=== PATIENT | female | born 1950 | race Hispanic/Latino ===

== ENCOUNTER 2018-03-16 13:35 | Observation (INO) | payer OTHER, SELFPAY ==
--- NOTE | 2018-03-16 14:05 | RAD REPORT ---
EXAM DESCRIPTION: CT - Ct Stroke Brain Wo Cont - 03/16/2018 1:52 pm CLINICAL HISTORY: TIA COMPARISON: none TECHNIQUE: Computed axial tomography of the head was obtained. IV contrast was not requested. All CT scans are performed using dose optimization technique as appropriate and may include automated exposure control or mA/KV adjustment according to patient size. FINDINGS: An intracranial bleed is not seen . The ventricles are normal in caliber. No extra-axial fluid collection is noted. A 4 millimeter low-density areas present within the right t halamus. A 5 millimeter low-density areas present within the left caudate having the appearance of an old lacu eloise infarction. Mild low-density areas within periventricular and deep white matter have the appearance of ischemic c hanges secondary to small vessel disease Fluid within the sinuses/ mastoids is not seen. IMPRESSION: 4 millimeter low-density area within the right thalamus consistent with a lacunar infarc tion. The age is indeterminate but it has more of the appearance of being old than acute. 5 millimeter old lacunar infarct involving the left caudate If the patient continues have symptoms to suggest an acute infarct then MRI would be recommended The exam was discussed with Dr. Stubbs in the Emergency Room at approximately 1:40 p.m. March 16, 2018
[2018-03-16 14:07] LABS: Absolute Lymphocytes (CBC) 2.3 K/uL (0.7-4.9); Absolute Monocytes 0.4 K/uL (0.1-1.3); Absolute Neutrophil 4.8 K/uL (1.8-8.0); Basophils % 0.6 % (0-1.3); Eosinophils % 0.6 % (0-4.4); Hematocrit 38.2 % (36.0-45.0); Lymphocytes % 30.9 % (15.3-44.8); MCH 30.4 pg (27.0-35.0); MCV 92.6 fL (80-100); MPV 9.3 fL (7.6-11.3); Monocytes % 4.7 % (3.3-12.3); RBC Red Blood Cell Count 4.12 M/uL (3.86-4.86)
[2018-03-16 14:08] LABS: Protime INR 1.11
[2018-03-16 14:11] LABS: Potassium 3.8 mEq/L (3.6-5.0)
--- NOTE | 2018-03-16 14:11 | RAD REPORT ---
EXAM DESCRIPTION: Olya Single View03/16/2018 1:56 pm CLINICAL HISTORY: Chest pain COMPARISON: none FINDINGS: The lungs appear clear of acute infiltrate. The heart is mildly enlarged IMPRESSION: No acute abnormalities displayed
[2018-03-16] MEDS ORDERED: ENALAPRILAT 1.25 MG/ML VIAL IV ONE (14:13)
--- NOTE | 2018-03-16 15:11 | ER ---
Nurse's Notes [facility] Name: Elizabeth Howard Age: 67 yrs Sex: Female : 1950 Arrival Date: 03/16/2018 Time: 13:34 Bed 4 Private MD: Diagnosis: Syncope and collapse;Personal history of transient ischemic attack (TIA), and cerebral infarction without residual deficits;Transient cerebral ischemic attack, unspecified Presentation: 03/16 12:50 Acuity: JOCELYN 2 13:28 Presenting complaint: EMS states: Pt had no neuro deficits before the colonoscopy sv procedure and had 2 syncopal episodes after ambulating to the bathroom. Pt had left arm and leg weakness with tremors to all 4 extremities with some improvement on the way to ER. EMS stated no arm drift. BS-99 at GI center and BS-126 by EMS. 22G L AC. Propofol was given during the colonoscopy. An acute neurological deficit is present. The charge nurse has been notified. The patients blood glucose was checked before arriving to the hospital and was found to be normal. 13:30 Presenting complaint: EMS states: pt had a colonoscopy procedure, pt was ambulatory to the restroom, staff reports that the pt had a syncopal episode, last known well was 1250. Transition of care: patient was not received from another setting of care. 13:30 Method Of Arrival: EMS: [facility] 13:30 Onset of symptoms was March 16, 2018 at 12:50. Initial Sepsis Screen: Does the patient sg meet any 2 criteria? No. Patient's initial sepsis screen is negative. Does the patient have a suspected source of infection? No. Patient's initial sepsis screen is negative. Care prior to arrival: Medication(s) given: D50 NS administered in route from GI center post colonoscopy, 250 mL administered IV initiated. 22 GA, in the left antecubital area, Glucose check: 99 Oxygen administered. via nasal cannula. 13:30 An acute neurological deficit is present. The charge nurse has been notified. The sg patient has been moved to a treatment area. The patients blood glucose was checked before arriving to the hospital and was found to be normal. Triage Assessment: 13:28 The onset of the patients symptoms was less than three hours ago. General: Appears in sv no apparent distress. comfortable, slender, Behavior is calm, cooperative, appropriate for age. Pain: Denies pain. EENT: No signs and/or symptoms were reported regarding the EENT system. Neuro: Level of Consciousness is awake, alert, obeys commands, Oriented to person, place, time, situation, Moves all extremities. Speech is normal, Facial symmetry appears normal. Cardiovascular: Patient's skin is warm and dry. Respiratory: Respiratory effort is even, unlabored, Respiratory pattern is regular, symmetrical. Derm: Skin is pink, warm \T\ dry. Stroke Activation: Symptom onset < 3 hours Physician: Stroke Attending; Name: ; Notified At: 13:19; Arrived At: Physician: Chief Stroke Resident; Name: ; Notified At: 13:19; Arrived At: Physician: Stroke Resident; Name: ; Notified At: 13:19; Arrived At: Physician: ED Attending; Name: Dr Stubbs; Notified At: 13:19; Arrived At: 13:36 Physician: ED Resident; Name: ; Notified At: 13:19; Arrived At: Stroke Activation: Symptom onset < 3 hours Physician: Stroke Attending; Name: ; Notified At: ; Arrived At: Physician: Chief Stroke Resident; Name: ; Notified At: ; Arrived At: Physician: Stroke Resident; Name: ; Notified At: ; Arrived At: Physician: ED Attending; Name: ; Notified At: 13:19; Arrived At: 13:20 Physician: ED Resident; Name: ; Notified At: ; Arrived At: Historical: - Allergies: 17:04 No Known Allergies; sv - Home Meds: 14:01 Plavix Oral [Active]; sv 14:15 valsartan 320 mg oral tab 1 tab once daily [Active]; zolpidem 10 mg Oral tab 1 tab once sg daily [Active]; Potassium Chloride Oral [Active]; metformin 500 mg Oral tab 1 tab 2 times per day [Active]; Bystolic 10 mg oral tab 1 tab once daily [Active]; atorvastatin 10 mg oral tab 1 tab once daily [Active]; - PMHx: 14:01 TIA x3; Hypertension; Diabetes - NIDDM; sv - Immunization history:: Adult Immunizations up to date. - Social history:: Smoking status: Patient/guardian denies using tobacco. Screenin:23 Abuse screen: Denies threats or abuse. Denies injuries from another. Nutritional sv screening: No deficits noted. Tuberculosis screening: No symptoms or risk factors identified. Fall Risk No fall in past 12 months (0 pts). Secondary diagnosis (15 points) TIA, IV access (20 points). Ambulatory Aid- None/Bed Rest/Nurse Assist (0 pts). Gait- Normal/Bed Rest/Wheelchair (0 pts) Mental Status- Oriented to own ability (0 pts). Total Davis Fall Scale indicates No Risk (0-24 pts). Assessment: 13:19 Reassessment: Code stroke activated, pt transported from Ambulance to [place] with ER staff melo Blanca RN and Lucina MANNING, accompanied by [facility] and [facility]. 13:30 Reassessment: at bedside evaluating pt at this time. sg 13:45 Patient has been NPO before screening. The patient is alert, and able to follow sv commands. The patient does not exhibit slurred or garbled speech. The patient is not exhibiting difficulty speaking. The patient does not exhibit difficulty understanding words. The patient is able to swallow own secretions with no drooling or need for suction. Patient tolerated one teaspoon of water. No drooling, immediate coughing, gurgling, or clearing of the throat was noted. The patient tolerated 90mL of water. No drooling, immediate coughing, gurgling, or clearing of the throat was noted. The patient passed the bedside swallow screening. Oral medications may be given as ordered. Contact Physician for further diet orders. Provider notified of bedside swallow screening results: Damon Stubbs MD. 14:00 T-PA (Activase) Screening: Contraindications: Rapidly improving condition or minor sv deficit: Yes. 14:00 Reassessment: Patient appears in no apparent distress at this time. Patient and/or sv family updated on plan of care and expected duration. Pain level reassessed. Patient is alert, oriented x 3, equal unlabored respirations, skin warm/dry/pink. Patient states symptoms have improved. 15:40 Reassessment: Patient appears in no apparent distress at this time. Patient and/or sv family updated on plan of care and expected duration. Pain level reassessed. Patient is alert, oriented x 3, equal unlabored respirations, skin warm/dry/pink. Patient states symptoms have improved. 17:03 Reassessment: Patient appears in no apparent distress at this time. Patient and/or sv family updated on plan of care and expected duration. Pain level reassessed. Patient is alert, oriented x 3, equal unlabored respirations, skin warm/dry/pink. Patient states symptoms have improved. Vital Signs: 13:30 BP 166 / 80; Pulse 63 MON; Resp 20 S; Pulse Ox 96% on R/A; Weight 56.25 kg (R); Pain sg 0/10; 13:40 Temp 97.6(O); sg 13:55 BP 153 / 72 RA Sitting (auto/reg); Pulse 49; Resp 18; Pulse Ox 96% ; sv 14:00 BP 161 / 61 LA Sitting (auto/reg); Pulse 49; Resp 18; Pulse Ox 96% ; sv 14:57 BP 154 / 66; Pulse 45; Resp 16; Pulse Ox 99% ; sv Antonette Coma Score: 13:30 Eye Response: spontaneous(4). Verbal Response: oriented(5). Motor Response: obeys sg commands(6). Total: 15. NIH Stroke Scale Scores: 13:36 NIHSS Score: 2 sv 13:48 NIHSS Score: 2 gs ED Course: 13:[address] via EMS stretcher. sv 13:34 Patient arrived in ED. sv 13:35 Damon Stubbs MD is Attending Physician. gs 13:35 potline monitor on. Pulse ox on. NIBP on. sv 13:36 Patient moved back from CT. sg 13:39 Triage completed. sg 13:40 Arm band placed on. sg 13:45 Initial lab(s) drawn, by ED staff, sent to lab. Inserted saline lock: 20 gauge in right sg antecubital area, using aseptic technique. Blood collected. Inserted by [employer]ILRO[employer] BUS MOTOR MECHANICKERRI Verdugo Maintain EMS IV. Dressing intact. Good blood return noted. Site clean \T\ dry. Gauge \T\ site: 22 G LAC. IV is patent, is intact, with good blood return. 13:47 X-ray(s) taken. sv 13:51 Lucina Woodson RN is Primary Nurse. sv 13:52 CT Stroke Brain w/o Contrast In Process Unspecified. EDMS 13:56 Stroke CXR 1 View In Process Unspecified. EDMS 14:08 Patient has correct armband on for positive identification. Placed in gown. Bed in low sv position. Call light in reach. Side rails up X2. 14:08 EKG done, by counter intelligence technician. reviewed by Damon Stubbs MD. tc 15:10 Alexus Jane MD is Hospitalizing Provider. gs 17:02 No provider procedures requiring assistance completed. Patient admitted, IV remains in sv place. intact. Administered Medications: 14:15 Drug: Enalaprilat 1.25 mg Route: IV; Rate: calculated rate; Site: left antecubital; sv 14:20 Follow up: Response: No adverse reaction; IV Status: Completed infusion; IV Intake: 1ml sv Point of Care Testing: Blood Glucose: 13:41 Blood Glucose: 175 mg/dL; sg Ranges: Intake: 14:20 IV: 1ml; Total: 1ml. sv Outcome: 15:10 Decision to Hospitalize by Provider. gs 17:03 Admitted to Tele accompanied by tech, family with patient, via stretcher, room 425, sv with chart, Report called to Hollie Mcadams RN 17:03 Condition: stable 17:03 Instructed on the need for admit. 17:53 Patient left the ED. sv NIH Stroke Scale - NIH Stroke Score Date: 03/16/2018 Time: 13:36 Total Score = 2 1a. Level of Consciousness (LOC) - 0(Alert) 1b. Level of Consciousness (LOC) (Year \T\ Age) - 0(Both) 1c. LOC Commands (Open \T\ Closes Eyes/Subway Car Repairer) - 0(Both) 2. Best Gaze (Lateral Gaze Paresis) - 0(Normal) 3. Visual Field Loss - 0(No visual loss) 4. Facial Palsy - 0(Normal) 5a. Left Arm: Motor (10-second hold) - 1(Drift) 5b. Right Arm: Motor (10-second hold) - 0(No drift) 6a. Left Leg: Motor (5-second hold - always test supine) - 1(Drift) 6b. Right Leg: Motor (5-second hold - always test supine) - 0(No drift) 7. Limb Ataxia (finger/nose \T\ heel/kellogg - test with eyes open) - 0(Absent) 8. Sensory Loss (pinprick arms/legs/face) - 0(Normal) 9. Best Language: Aphasia (description/naming/reading) - 0(No aphasia) 10. Dysarthria (speech clarity - read or repeat words) - 0(Normal) 11. Extinction and Inattention (visual/tactile/auditory/spatial/personal) - 0(No abnormality) Initials: man NIH Stroke Scale - NIH Stroke Score Date: 03/16/2018 Time: 13:48 Total Score = 2 1a. Level of Consciousness (LOC) - 0(Alert) 1b. Level of Consciousness (LOC) (Year \T\ Age) - 0(Both) 1c. LOC Commands (Open \T\ Closes Eyes/Subway Car Repairer) - 0(Both) 2. Best Gaze (Lateral Gaze Paresis) - 0(Normal) 3. Visual Field Loss - 0(No visual loss) 4. Facial Palsy - 0(Normal) 5a. Left Arm: Motor (10-second hold) - 0(No drift) 5b. Right Arm: Motor (10-second hold) - 0(No drift) 6a. Left Leg: Motor (5-second hold - always test supine) - 1(Drift) 6b. Right Leg: Motor (5-second hold - always test supine) - 0(No drift) 7. Limb Ataxia (finger/nose \T\ heel/kellogg - test with eyes open) - 1(Present in one limb) 8. Sensory Loss (pinprick arms/legs/face) - 0(Normal) 9. Best Language: Aphasia (description/naming/reading) - 0(No aphasia) 10. Dysarthria (speech clarity - read or repeat words) - 0(Normal) 11. Extinction and Inattention (visual/tactile/auditory/spatial/personal) - 0(No abnormality) Initials: Signatures: Dispatcher [employer] EDLucina Moon RN RN Bairon Holloway RN RN Zuleyma Darnell, payer specialist EKG Ttc Damon Stubbs MD MD Corrections: (The following items were deleted from the chart) 13:40 12:50 Onset of symptoms was March 16, 2018 at 12:30 [facility] 13:40 12:50 Initial Sepsis Screen: Does the patient meet any 2 criteria? No. sg Patient's initial sepsis screen is negative. Does the patient have a suspected source of infection? No. Patient's initial sepsis screen is negative. sg 13:40 12:50 Care prior to arrival: Medication(s) given: IV initiated. 22 GA, in the sg left antecubital area, Glucose check: 99 Oxygen administered. via nasal cannula, sg 13:45 13:30 Care prior to arrival: Medication(s) given: IV initiated. 22 GA, in the sg left antecubital area, Glucose check: 99 Oxygen administered. via nasal cannula, 14:09 13:30 Onset of symptoms was March 16, 2018 at 12:30 sg sv
--- NOTE | 2018-03-16 15:11 | EDPHYS ---
Physician Documentation [facility] Name: Elizabeth Howard Age: 67 yrs Sex: Female : 1950 Arrival Date: 03/16/2018 Time: 13:34 Bed 4 Private MD: ED Physician Damon Stubbs HPI: 03/16 14:54 This 67 yrs old Female presents to ER via EMS with complaints of S/S of gs Possible Stroke. 14:54 The patient presents to the emergency department with weakness of the left upper gs extremity, left lower extremity, syncope. Onset: The symptoms/episode began/occurred acutely, just prior to arrival, at 11:50. Context: occurred at a hospital. Associated signs and symptoms: Pertinent positives: weakness, Pertinent negatives: loss of vision. Severity of symptoms: At their worst the symptoms were moderate in the emergency department the symptoms are unchanged. Current symptoms: paralysis or paresis. The patient has experienced similar episodes in the past, a few times. Historical: - Allergies: 17:04 No Known Allergies; sv - Home Meds: 14:01 Plavix Oral [Active]; sv 14:15 valsartan 320 mg oral tab 1 tab once daily [Active]; zolpidem 10 mg Oral tab 1 tab once sg daily [Active]; Potassium Chloride Oral [Active]; metformin 500 mg Oral tab 1 tab 2 times per day [Active]; Bystolic 10 mg oral tab 1 tab once daily [Active]; atorvastatin 10 mg oral tab 1 tab once daily [Active]; - PMHx: 14:01 TIA x3; Hypertension; Diabetes - NIDDM; sv - Immunization history:: Adult Immunizations up to date. - Social history:: Smoking status: Patient/guardian denies using tobacco. ROS: 14:54 All other systems are negative. gs Exam: 14:54 Head/Face: Normocephalic, atraumatic. Eyes: Pupils equal round and reactive to light, gs extra-ocular motions intact. Lids and lashes normal. Conjunctiva and sclera are non-icteric and not injected. Cornea within normal limits. Periorbital areas with no swelling, redness, or edema. ENT: Nares patent. No nasal discharge, no septal abnormalities noted. Tympanic membranes are normal and external auditory canals are clear. Oropharynx with no redness, swelling, or masses, exudates, or evidence of obstruction, uvula midline. Mucous membranes moist. Neck: Trachea midline, no thyromegaly or masses palpated, and no cervical lymphadenopathy. Supple, full range of motion without nuchal rigidity, or vertebral point tenderness. No Meningismus. Chest/axilla: Normal chest wall appearance and motion. Nontender with no deformity. No lesions are appreciated. 14:54 Constitutional: The patient appears alert, awake. 15:06 Cardiovascular: Regular rate and rhythm with a normal S1 and S2. No gallops, murmurs, gs or rubs. Normal PMI, no JVD. No pulse deficits. Respiratory: Lungs have equal breath sounds bilaterally, clear to auscultation and percussion. No rales, rhonchi or wheezes noted. No increased work of breathing, no retractions or nasal flaring. Abdomen/GI: Soft, non-tender, with normal bowel sounds. No distension or tympany. No guarding or rebound. No evidence of tenderness throughout. Back: No spinal tenderness. No costovertebral tenderness. Full range of motion. Skin: Warm, dry with normal turgor. Normal color with no rashes, no lesions, and no evidence of cellulitis. 15:06 Neuro: Orientation: to person, place, time, situation, Cranial nerves: CN II- XII are normal as tested, Cerebellar function: normal finger to nose testing, Motor: strength is 5/5 in all extremities, Sensation: no obvious gross deficits. 15:15 ECG was reviewed by the Attending Physician. Vital Signs: 13:30 BP 166 / 80; Pulse 63 MON; Resp 20 S; Pulse Ox 96% on R/A; Weight 56.25 kg (R); Pain sg 0/10; 13:40 Temp 97.6(O); sg 13:55 BP 153 / 72 RA Sitting (auto/reg); Pulse 49; Resp 18; Pulse Ox 96% ; sv 14:00 BP 161 / 61 LA Sitting (auto/reg); Pulse 49; Resp 18; Pulse Ox 96% ; sv 14:57 BP 154 / 66; Pulse 45; Resp 16; Pulse Ox 99% ; sv NIH Stroke Scale Scores: 13:36 NIHSS Score: 2 sv 13:48 NIHSS Score: 2 gs [place] Coma Score: 13:30 Eye Response: spontaneous(4). Verbal Response: oriented(5). Motor Response: obeys sg commands(6). Total: 15. MDM: 13:47 Patient medically screened. 15:06 Data reviewed: vital signs, nurses notes. Response to treatment: the patient's symptoms gs have markedly improved after treatment, no TPA as symptoms completely resolved. ED course: ddx: ich , cva, tia, electrolyte abnormality. 03/16 13:48 Order name: Basic Metabolic Panel; Complete Time: 14:52 03/16 13:48 Order name: CBC with Diff; Complete Time: 14:52 03/16 13:48 Order name: Protime (+inr); Complete Time: 14:52 03/16 13:48 Order name: Urine Microscopic Only 03/16 15:47 Order name: Urine Dipstick--Ancillary (enter results) 03/16 13:48 Order name: CT Stroke Brain w/o Contrast; Complete Time: 14:52 03/16 13:48 Order name: Stroke CXR 1 View; Complete Time: 14:52 03/16 13:48 Order name: EKG; Complete Time: 13:48 03/16 13:48 Order name: Accucheck; Complete Time: 14:20 03/16 13:48 Order name: Cardiac monitoring; Complete Time: 14:20 03/16 15:15 Order name: CONS Physician Consult [facility] 03/16 15:51 Order name: Urine Dipstick-Ancillary [facility] 03/16 13:48 Order name: EKG - Nurse/Tech; Complete Time: 14:20 03/16 13:48 Order name: IV Saline Lock; Complete Time: 14:20 03/16 13:48 Order name: Labs collected and sent; Complete Time: 14:20 03/16 13:48 Order name: NPO; Complete Time: 14:20 03/16 13:48 Order name: O2 Per Protocol; Complete Time: 14:20 03/16 13:48 Order name: O2 Sat Monitoring; Complete Time: 14:20 03/16 13:48 Order name: Stroke Swallow Screen; Complete Time: 14:20 EC:15 Rate is 49 beats/min. Rhythm is regular. UT interval is normal. QRS interval is normal. gs T waves are Normal. No ST changes noted. Clinical impression: Sinus bradycardia. Interpreted by me. Administered Medications: 14:15 Drug: Enalaprilat 1.25 mg Route: IV; Rate: calculated rate; Site: left antecubital; 14:20 Follow up: Response: No adverse reaction; IV Status: Completed infusion; IV Intake: 1ml sv Point of Care Testing: Blood Glucose: 13:41 Blood Glucose: 175 mg/dL; sg Ranges: Critical Glucose Levels:Adult <50 mg/dl or >400 mg/dl <40 mg/dl or >180 mg/dl Disposition: 03/16/18 15:10 Hospitalization ordered by Alexsu Jane for Observation. Preliminary diagnosis are Syncope and collapse, Personal history of transient ischemic attack (TIA), and cerebral infarction without residual deficits, Transient cerebral ischemic attack, unspecified. - Bed requested for Telemetry/MedSurg (observation). - Status is Observation. sv - Condition is Stable. - Problem is new. - Symptoms have improved. UTI on Admission? No NIH Stroke Scale - NIH Stroke Score Date: 03/16/2018 Time: 13:36 Total Score = 2 1a. Level of Consciousness (LOC) - 0(Alert) 1b. Level of Consciousness (LOC) (Year \T\ Age) - 0(Both) 1c. LOC Commands (Open \T\ Closes Eyes/Front End Drupal Developer) - 0(Both) 2. Best Gaze (Lateral Gaze Paresis) - 0(Normal) 3. Visual Field Loss - 0(No visual loss) 4. Facial Palsy - 0(Normal) 5a. Left Arm: Motor (10-second hold) - 1(Drift) 5b. Right Arm: Motor (10-second hold) - 0(No drift) 6a. Left Leg: Motor (5-second hold - always test supine) - 1(Drift) 6b. Right Leg: Motor (5-second hold - always test supine) - 0(No drift) 7. Limb Ataxia (finger/nose \T\ heel/kellogg - test with eyes open) - 0(Absent) 8. Sensory Loss (pinprick arms/legs/face) - 0(Normal) 9. Best Language: Aphasia (description/naming/reading) - 0(No aphasia) 10. Dysarthria (speech clarity - read or repeat words) - 0(Normal) 11. Extinction and Inattention (visual/tactile/auditory/spatial/personal) - 0(No abnormality) Initials: sv NIH Stroke Scale - NIH Stroke Score Date: 03/16/2018 Time: 13:48 Total Score = 2 1a. Level of Consciousness (LOC) - 0(Alert) 1b. Level of Consciousness (LOC) (Year \T\ Age) - 0(Both) 1c. LOC Commands (Open \T\ Closes Eyes/Front End Drupal Developer) - 0(Both) 2. Best Gaze (Lateral Gaze Paresis) - 0(Normal) 3. Visual Field Loss - 0(No visual loss) 4. Facial Palsy - 0(Normal) 5a. Left Arm: Motor (10-second hold) - 0(No drift) 5b. Right Arm: Motor (10-second hold) - 0(No drift) 6a. Left Leg: Motor (5-second hold - always test supine) - 1(Drift) 6b. Right Leg: Motor (5-second hold - always test supine) - 0(No drift) 7. Limb Ataxia (finger/nose \T\ heel/kellogg - test with eyes open) - 1(Present in one limb) 8. Sensory Loss (pinprick arms/legs/face) - 0(Normal) 9. Best Language: Aphasia (description/naming/reading) - 0(No aphasia) 10. Dysarthria (speech clarity - read or repeat words) - 0(Normal) 11. Extinction and Inattention (visual/tactile/auditory/spatial/personal) - 0(No abnormality) Initials: irma Signatures: Dispatcher [employer] EDMS Lucina Woodson RN RN sv Gay, Steven, RN RN sg Starr, Gregory, MD MD Corrections: (The following items were deleted from the chart) 14:42 14:24 URINE DIPSTICK--ANCILLARY+U.LAB.BRZ ordered. EDMS EDMS
--- NOTE | 2018-03-16 15:38 | EKG ---
Test Date: 2018-03-16 Test Time: 13:50:40 Ip Paralegal: JB MEASUREMENT RESULTS: Intervals: Rate: 49 OK: 160 QRSD: 80 QT: 426 QTc: 384 [place]: P: 49 OK: 160 QRS: -6 T: 22 INTERPRETIVE STATEMENTS: Marked sinus bradycardia Abnormal ECG No previous ECG available for comparison Electronically Signed On 03-16-18 15:37:30 CDT by Estevan Aponte
[2018-03-16 15:50] LABS: Urine Blood NEGATIVE (NEG); Urine Glucose NEGATIVE (NEG); Urine Protein NEGATIVE (NEG); Urine Specific Gravity 1.015 (1.005-1.030)
[2018-03-16 16:25] LABS: Urine Bacteria 20-50 /HPF (<20); Urine Culture Reflex Order REFLEXED; Urine RBC <5 /HPF (NONE SEEN)
--- NOTE | 2018-03-16 16:30 | P.HP ---
Certification for Inpatient Patient admitted to: Observation With expected LOS: <2 Midnights Practitioner: I am a practitioner with admitting privileges, knowledge of patient current condition, hospital course, and medical plan of care. Services: Services provided to patient in accordance with Admission requirements found in Title 42 Section 412.3 of the Code of Federal Regulations Patient History Date of Service: 03/16/18 Reason for admission: syncope History of Present Illness: Ms Howard is a 67 years old woman with history of DM II, HTN, TIA, who about 1 month ago had the last TIA, she went to [place] where she had a full neurologic work up. Today she was having a colonoscopy, when the study finished , she went to the restroom, and subsequently become unresponsive and loss her conscious. After she recover, was referred to ED for evaluation. She denied chest pain, palpitations, dizziness or SOB prior the syncopal episode. She has not had similar episodes in the past. - Past Medical/Surgical History -: DM II -: HTN -: TIA Past Surgical History: Reviewed- Non-Contributory - Family History Family History: Reviewed- Non-Contributory - Social History Smoking Status: Never smoker Alcohol use: No CD- Drugs: No Place of Residence: Home Review of Systems 10-point ROS is otherwise unremarkable Physical Examination - Physical Exam General: Alert, In no apparent distress HEENT: Atraumatic, PERRLA, Mucous membr. moist/pink, EOMI, Sclerae nonicteric Neck: Supple, 2+ carotid pulse no bruit, No LAD, Without JVD or thyroid abnormality Respiratory: Clear to auscultation bilaterally, Normal air movement Cardiovascular: Regular rate/rhythm, Normal S1 S2 Gastrointestinal: Normal bowel sounds, No tenderness Musculoskeletal: No tenderness Integumentary: No rashes Neurological: Normal speech, Normal strength at 5/5 x4 extr, Normal tone, Normal affect Lymphatics: No axilla or inguinal lymphadenopathy - Studies Laboratory Data (last 24 hrs) 03/16/18 13:40: PT 13.1 H, INR 1.11 03/16/18 13:40: WBC 7.5, Hgb 12.5, Hct 38.2, Plt Count 261 03/16/18 13:40: Sodium 139, Potassium 3.8, BUN 12, Creatinine 0.70, Glucose 189 H Assessment and Plan - Problems (Diagnosis) (1) Syncope Current Visit: Yes Status: Acute Qualifiers: Syncope type: unspecified Qualified Code(s): R55 - Syncope and collapse (2) History of TIA (transient ischemic attack) Current Visit: Yes Status: Acute (3) HTN (hypertension) Current Visit: Yes Status: Acute Qualifiers: Hypertension type: essential hypertension Qualified Code(s): I10 - Essential (primary) hypertension (4) Diabetes mellitus Current Visit: Yes Status: Acute Qualifiers: Diabetes mellitus type: type 2 Diabetes mellitus intermediate designer insulin use: without intermediate designer use Diabetes mellitus complication status: with unspecified complications Qualified Code(s): E11.8 - Type 2 diabetes mellitus with unspecified complications - Plan Ms Howard will be admitted to the hospital due to syncopal episode. She is bradycardic at 47 bpm, without chronotropic negative medication on board, she is in sinus rhythm. CT head shows no acute abnormalities, however, she has multiple old lacunar infarcts. Will admit overnight for observation, will order Carotid doppler, ECHO and brain MRI. - Advance Directives Does patient have a Living Will: No Does patient have a Durable POA for Healthcare: No - Code Status/Comfort Care Code Status Assessed: Yes Code Status: Full Code
[2018-03-16] MEDS ORDERED: ACETAMINOPHEN 500 MG TAB PO PRN (17:20)
[2018-03-16] MEDS ORDERED: GLUCAGON 1 MG/VIAL IM PRN (17:20)
[2018-03-16] MEDS: INSULIN -REGULAR HUMAN 50 UNIT/0.5 ML ML SQ SCH ×2 (17:20→20:08)
[2018-03-16] MEDS ORDERED: ONDANSETRON 4 MG/2 ML VIAL IV PRN (17:20)
[2018-03-16] MEDS ORDERED: D50W 25 GM/50 ML SYRINGE IV PRN (17:20)
[2018-03-16 17:50] VITALS: BMI 23.6
[2018-03-16] MEDS: ENOXAPARIN 40 MG/0.4 ML SQ SCH (17:57)
[2018-03-16] MEDS: CLOPIDOGREL 75 MG TABLET PO SCH (17:58)
--- NOTE | 2018-03-16 19:11 | RAD REPORT ---
EXAM DESCRIPTION: VASCarotid Artery Bilateral03/16/2018 6:59 pm CLINICAL HISTORY: Syncope COMPARISON: None FINDINGS: The velocity of the right internal carotid artery equals 93 cm/sec. The right ICA/CCA rati o 0.9 The velocity of the left internal carotid artery equals 103 cm/sec. The left ICA/CCA ratio 0.9 Mild plaque is present within the carotid arteries. The vertebral arteries demonstrate antegrade flow 1.7 centimeter left thyroid nodule is present IMPRESSION: Mild plaque within the carotid arteries without evidence of a hemodynamically significan t stenosis 1.7 centimeter left thyroid nodule. A dedicated thyroid ultrasound is recommended
[2018-03-16] MEDS: ATORVASTATIN 80 MG TAB PO SCH (20:09)
[2018-03-16] MEDS ORDERED: POTASSIUM CL SA 10 MEQ TAB PO ONE (21:00)
--- NOTE | 2018-03-16 21:56 | RAD REPORT ---
EXAM DESCRIPTION: MRI - Stroke Protocol - 03/16/2018 9:39 pm CLINICAL HISTORY: TIA COMPARISON: Head CT 03/16/2018 TECHNIQUE: Axial, sagittal and coronal magnetic resonance images of the brain were obtained. cc Magn evist was administered. Magnetic resonance angiography of the head and neck was performed. Source jodi ges were reviewed and reconstructed at 360 degrees rotation. FINDINGS: Diffusion-weighted/ADC mapping does not reveal evidence of an acute infarction. Mioderate signal within periventricular, deep and subcortical white matter has the appearance of isch emic changes secondary to small vessel disease. Small old right thalamic infarct is present. Small old lacunar infarct of the left caudate head is se en. The ventricles are normal caliber. An extra-axial fluid collection is not seen. No abnormal enhancement is displayed Minimal opacification of sphenoid sinus is seen. Mastoids are clear The common, internal and external carotid arteries do not demonstrate a significant stenosis. The [place] tebral arteries are unremarkable. The right A1 segment of anterior cerebral artery is hypoplastic. Remainder of the anterior cerebral , middle cerebral, posterior cerebral, basilar and distal internal carotid arteries do not demonstrat e a significant stenosis. An aneurysm is not seen IMPRESSION: No acute intracranial abnormality is seen. Moderate signal within periventricular, deep and subcortical white matter likely representing ischemi c changes secondary to small vessel disease. No significant abnormality involving the arteries of the head and neck
--- NOTE | 2018-03-17 01:43 | CON ---
Date of Consultation: 03/16/2018 Reason: Syncope, left-sided weakness. History: This is a 67-year-old lady, who was admitted actually in [place] quite recently after buster ng a very similar episode. She was in her usual state of health until today. She had a colonoscopy and then had 2 syncopal events after ambulating to the bathroom. Left arm and left leg were weak and the patient was noted to have a tremor. The patient's says just to the left arm and left leg, [facility] medical record review reveals that she has all 4 extremities symptom improved while in transit to the emergency department, not given tPA because of the rapidly improving symptoms, passed her stroke study and swallow study. CT scan demonstrates prior lacunar infarcts. The patient is on Plavix, st atin currently. She feels improved. Consultation was requested. Past Medical History: Prior stroke, hyperlipidemia, diabetes, hypertension, and prior TIAs as well. Medications: She is on Plavix and a statin with a sliding scale presently. Social History: Drinks, employed, and independent with activities of daily living. Family History: No family history of seizures. Review of Systems: General: Generally good health. Eyes: Negative. Ears, Nose, and Throat: Negative. Cardiovascular: Hypertension. Pulmonary: Negative. GI: Negative. : Negative. Musculoskeletal: Negative. Neurologic: As noted. Psychiatric: Negative. Endocrine: Diabetes. Hematologic: Negative. Physical Examination: Vital Signs: 97.9, 64, 16, and 136/72. The patient had bradycardia with heart rates in the 40s, mos t in the afternoon. General: However, she is awake, alert, and oriented to time, person, place, and situation. Heart: Sinus bradycardia. Neck: No carotid bruits. Lungs: Clear. Abdomen: Soft. Bowel sounds present. Neurologic: Pupils equal, round, and reactive. Ocular motion full. Visual manzanares full. Facial str ength and sensation normal. Tongue protrudes evenly. Soft palate elevates symmetrically bilaterally . Extremities: Strength full. Sensation decreased symmetrically distally. No cortical extinction. R eflexes trace. Toes are downgoing. Cerebellar exam demonstrates no ataxia. Impression: Probable transient ischemic attack. Plan: We will check a brain MRI, EEG. Echo has been requested. It is pending. Check lipids. Thank you for the consult. We will continue to follow with you. JAMAL/MIGDALIA Voice ID: [id number] Report ID: [id number]
[2018-03-17 05:28] LABS: Absolute Monocytes 0.5 K/uL (0.1-1.3); Basophils % 0.6 % (0-1.3); Eosinophils % 1.6 % (0-4.4); Hematocrit 36.9 % (36.0-45.0); Lymphocytes % 39.1 % (15.3-44.8); MCH 30.5 pg (27.0-35.0); MCV 91.8 fL (80-100); MPV 9.2 fL (7.6-11.3); Monocytes % 6.3 % (3.3-12.3); RBC Red Blood Cell Count 4.02 M/uL (3.86-4.86)
[2018-03-17 06:05] LABS: BUN Blood Urea Nitrogen 9 mg/dL (6-20); Bicarbonate 26 mEq/L (21-31); Glucose Level 101 mg/dL (65-120); HDL Cholesterol 42 mg/dL (29-89); LDL Cholesterol, Calculated 85 (<130); Potassium 3.8 mEq/L (3.6-5.0); Sodium Level 137 mEq/L (135-145)
[2018-03-17] MEDS: INSULIN -REGULAR HUMAN 50 UNIT/0.5 ML ML SQ SCH ×4 (07:30→21:00)
[2018-03-17] MEDS: NA CHLORIDE 0.9% 1,000 ML IV SCH ×3 (08:22→16:28)
[2018-03-17] MEDS: ENOXAPARIN 40 MG/0.4 ML SQ SCH (08:26)
[2018-03-17] MEDS: CLOPIDOGREL 75 MG TABLET PO SCH (08:29)
[2018-03-17] MEDS: VALSARTAN 160 MG TAB PO SCH (08:29)
[2018-03-17] MEDS: ASPIRIN EC 81 MG TAB PO SCH (08:29)
[2018-03-17] MEDS ORDERED: POTASSIUM CL SA 10 MEQ TAB PO ONE (09:00)
[2018-03-17] MEDS ORDERED: HOME MED 1 EA UNK (Valsartan [Valsartan] 320 MG) PO SCH (09:00)
[2018-03-17 09:08] LABS: A1c Component 0.51 mg/dL; Hemoglobin A1c 5.9 % (4-6.0)
[2018-03-17 09:15] LABS: Thyroid Stimulating Hormone 1.42 uIU/mL (0.34-5.60)
--- NOTE | 2018-03-17 16:27 | EKG ---
Test Date: 2018-03-17 Test Time: 09:03:28 Concert Or Lecture Hall Manager: NIGEL MEASUREMENT RESULTS: Intervals: Rate: 47 NE: 160 QRSD: 82 QT: 396 QTc: 350 [place]: P: 41 NE: 160 QRS: -9 T: 31 INTERPRETIVE STATEMENTS: Marked sinus bradycardia Minimal voltage criteria for LVH, may be normal variant Nonspecific T wave abnormality Abnormal ECG Compared to ECG 03/16/2018 13:50:40 Left ventricular hypertrophy now present T-wave abnormality now present Electronically Signed On 03-17-18 16:23:43 CDT by Estevan Aponte
--- NOTE | 2018-03-17 16:47 | ECHO ---
HEIGHT: 5 ft 1 in WEIGHT: 125 lb 0 oz DATE OF STUDY: 03/17/[address]: Alexus Patel MD 2-DIMENSIONAL: YES M.MODE: YES DOPPLER: YES COLOR FLOW: YES TDS: PORTABLE: DEFINITY: BUBBLE STUDY: DIAGNOSIS: SYNCOPE CARDIAC HISTORY: CATHERIZATION: NO SURGERY: NO PROSTHETIC VALVE: NO PACEMAKER: NO MEASUREMENTS (cm) DIASTOLIC (NORMALS) SYSTOLIC (NORMALS) IVSd 1.1 (0.6-1.2) LA Diam 2.9 (1.9-4.0) LVEF 71% LVIDd 4.7 (3.5-5.7) LVIDs 2.8 (2.0-3.5) %FS 40% LVPWd 1.2 (0.6-1.2) Ao Diam 2.7 (2.0-3.7) 2 DIMENSIONAL ASSESSMENT: RIGHT ATRIUM: NORMAL LEFT ATRIUM: NORMAL RIGHT VENTRICLE: NORMAL LEFT VENTRICLE: NORMAL TRICUSPID VALVE: NORMAL MITRAL VALVE: NORMAL PULMONIC VALVE: NORMAL AORTIC VALVE: NORMAL PERICARDIAL EFFUSION: NONE AORTIC ROOT: NORMAL LEFT VENTRICULAR WALL MOTION: NORMAL DOPPLER/COLOR FLOW: NORMAL COMMENTS: NORMAL 2-DIMENSIONAL ECHOCARDIOGRAM WITH DOPPLER. TECHNOLOGIST: CARLOS ALBERTO OWENS
--- NOTE | 2018-03-17 18:27 | EEG ---
CHART: [id number] TEST ID#: [id number] DATE OF STUDY: 03/17/2018 THE EEG WAS RECORDED PORTABLE IN THE PATIENT'S ROOM ON A 17 CHANNEL MACHINE. ELECTRODES WERE APPLIED IN THE USUAL MANNER USING THE INTERNATIONAL 10-20 SYSTEM. THE WAKING BACKGROUND RHYTHM IN THIS RECORD CONSISTS OF VERY WELL DEVELOPED AND FAIRLY WELL ORGANIZED WAVES OF 10 HZ., MAXIMAL IN THE POSTERIOR HEAD REGIONS WHICH ATTENUATE NORMALLY WITH EYE OPENING. IN DROWSINESS THE BACKGROUND DROPS TO 9 HZ. THERE ARE NO FOCAL OR LATERALIZING FEATURES. NO EPILEPTIFORM ACTIVITY APPEARS. SLEEP DID NOT OCCUR. HYPERVENTILATION WAS NOT PERFORMED. PHOTIC STIMULATION PRODUCED GOOD DRIVING BILATERALLY. IMPRESSION: NORMAL EEG FOR THE AGE OF THE PATIENT IN WAKE AND DROWSINESS.
--- NOTE | 2018-03-17 18:48 | P.DS ---
Admission Date: 03/16/18 Discharge Date: 03/17/18 Primary Care Provider: Dr. Mi([place]); Cardiology-Dr. Browne Disposition: ROUTINE DISCHARGE Discharge Condition: GOOD Reason for Admission: syncope Consultations: Neurology-Dr. Short Procedures: MRI brain: No acute stroke noted. Chronic ischemic changes noted. Carotid Doppler: No acute stenosis noted. Echocardiogram: Ejection fraction 71%. EEG: Normal - Problems (1) TIA (transient ischemic attack) Current Visit: Yes Status: Acute Qualifiers: Transient cerebral ischemia type: unspecified Qualified Code(s): G45.9 - Transient cerebral ischemic attack, unspecified (2) Hyperlipidemia Current Visit: Yes Status: Chronic Qualifiers: Hyperlipidemia type: unspecified Qualified Code(s): E78.5 - Hyperlipidemia , unspecified (3) Thyroid nodule Current Visit: Yes Status: Chronic (4) Diabetes mellitus Onset Date: 03/17/18 Current Visit: Yes Status: Chronic Qualifiers: Diabetes mellitus type: type 2 Diabetes mellitus nursing home insulin use: without nursing home use Diabetes mellitus complication status: with hypoglycemia Diabetes mellitus complication detail: without coma Qualified Code(s): E11.649 - Type 2 diabetes mellitus with hypoglycemia without coma (5) HTN (hypertension) Onset Date: 03/17/18 Current Visit: Yes Status: Chronic Qualifiers: Hypertension type: essential hypertension Qualified Code(s): I10 - Essential (primary) hypertension (6) History of TIA (transient ischemic attack) Current Visit: Yes Status: Chronic (7) Syncope Onset Date: 03/17/18 Current Visit: Yes Status: Acute Qualifiers: Syncope type: unspecified Qualified Code(s): R55 - Syncope and collapse (8) Bradycardia Current Visit: Yes Status: Acute Brief History of Present Illness: 67-year-old female presented emergency room with syncope. The patient had a recent colonoscopy. Upon ambulation the patient had a syncopal episode. The patient was sent for evaluation. Initial CT scan showed no acute stroke. Hospital Course: Patient presented with syncopal episode. This was likely related to multiple issues. The patient recently had a colonoscopy which required her to stop her Plavix prior to this. The patient also felt somewhat dehydrated. Upon initial evaluation the patient had low blood sugar and bradycardia and was noted. She apparently had been started on a new blood pressure medication-Bystolic recently. Her syncopal episodes resolved. Blood pressure stable on valsartan. Syncopal episode likely related to recent stoppage of Plavix for a colonoscopy. Patient with history of TIA. Patient likely had TIA event. This was discussed in detail with Neurology. Medications have been adjusted. MRI showed no acute stroke. Carotid Doppler showed no acute stenosis. Echocardiogram within normal range with ejection fraction is 71%. EEG normal. At discharge patient will continue with Plavix 75 mg daily. Aspirin 81 mg daily will be added. Also at discharge Bystolic has been discontinued due to bradycardia. Metformin has been discontinued due to well controlled diabetes and noted hypoglycemia. Recommendation is to monitor her blood pressure, heart rate, and blood sugars closely. Further adjustment can be done by her PCP. Recommendation is for the patient follow up with cardiology in 1-2 weeks to follow up this hospitalization. Recommendations for the patient follow up with neurology in 2-4 weeks to monitor her progress. Patient with diabetes. Hemoglobin A1c 5.9. Patient has had recent hypoglycemia episodes. Medications had to be adjusted. Recommendation is to discontinue metformin. She is to monitor blood sugars daily. Recommendation is to maintain blood sugars less 140 fasting less than 200 after meals. If blood sugars remain above 200 consistently she may need to restart metformin but at a lower dose. Further adjustment can be done by her PCP. Patient with history of hypertension. Medications have been adjusted due to bradycardia. At discharge Bystolic has been discontinued. She will continue with valsartan 320 mg 1 pill once daily. Recommendation is to maintain blood pressures less 150/80. Further adjustment can be done by her PCP. Patient has hyperlipidemia. LDL elevated at 85. Recommendation is for LDL to be less than 70. At discharge Lipitor will be increased to 40 mg daily. Recommendation is to recheck lipid panel in 4 weeks to monitor progress. Patient found to have 1.7 cm left thyroid nodule. This has been addressed by Endocrinology in the past. Recommendation is for the patient to follow up with Endocrinology or ENT to further evaluate. Patient may require biopsy. As mentioned above patient had bradycardia. Bystolic was discontinued. At discharge she will continue to have her heart rate monitored. Patient may need cardiac evaluation as an outpatient to further monitor and evaluate. Vital Signs/Physical Exam: Temp Pulse Resp BP Pulse Ox 97.4 F 52 16 149/82 H 97 03/17/18 16:00 03/17/18 16:00 03/17/18 16:00 03/17/18 16:00 03/17/18 16:00 General: Alert, In no apparent distress, Oriented x3, Cooperative HEENT: Atraumatic, Mucous membr. moist/pink Neck: Supple, No Thyromegaly Respiratory: Clear to auscultation bilaterally, Normal air movement Cardiovascular: Normal pulses, Regular rate/rhythm Gastrointestinal: Normal bowel sounds, Soft and benign, Non-distended, No tenderness, No masses, No rebound, No guarding Musculoskeletal: No erythema, No tenderness, No warmth Integumentary: No tenderness/swelling, No erythema, No warmth, No cyanosis Neurological: Normal speech, Normal strength at 5/5 x4 extr, Normal tone, Normal affect Lymphatics: No axilla or inguinal lymphadenopathy Laboratory Data at Discharge: WBC 7.7 K/uL (4.3-10.9) 03/17/18 04:54 Hgb 12.3 g/dL (12.0-15.0) 03/17/18 04:54 Hct 36.9 % (36.0-45.0) 03/17/18 04:54 Plt Count 252 K/uL (152-406) 03/17/18 04:54 PT 13.1 SECONDS (9.5-12.5) H 03/16/18 13:40 INR 1.11 03/16/18 13:40 Sodium 137 mEq/L (135-145) 03/17/18 04:54 Potassium 3.8 mEq/L (3.6-5.0) 03/17/18 04:54 BUN 9 mg/dL (6-20) 03/17/18 04:54 Creatinine 0.56 mg/dL (0.44-1.00) 03/17/18 04:54 Glucose 101 mg/dL (65-120) 03/17/18 04:54 Magnesium 2.0 mg/dL (1.8-2.5) 03/16/18 13:40 Triglycerides 255 mg/dL (35-160) H 03/17/18 04:54 Cholesterol 178 mg/dL (<200) 03/17/18 04:54 HDL Cholesterol 42 mg/dL (29-89) 03/17/18 04:54 Cholesterol/HDL Ratio 4.24 03/17/18 04:54 Home Medications: Aspirin [Aspirin EC 81 MG] 81 mg PO DAILY #30 tablet.dr 03/17/18 Atorvastatin Calcium [Lipitor] 40 mg PO BEDTIME #60 tab 03/17/18 Clopidogrel Bisulfate [Plavix*] 75 mg PO DAILY 03/17/18 Valsartan 320 mg PO DAILY 03/17/18 Zolpidem Tartrate 10 mg PO BEDTIME 03/17/18 New Medications: Aspirin [Aspirin EC 81 MG] 81 mg PO DAILY #30 tablet. Atorvastatin Calcium [Lipitor] 40 mg PO BEDTIME #60 tab Patient Discharge Instructions: 1. Patient will need a follow up with her PCP in 1 week to follow up this hospitalization. 2. Patient presented with syncopal episode. This may be related to recent stoppage of Plavix for a colonoscopy. Patient with history of TIA. Patient likely had TIA event. Patient also had hypoglycemia and bradycardia. Medications have been adjusted. Patient seen evaluated by neurology. MRI showed no acute stroke. Carotid Doppler showed no acute stenosis. Echocardiogram within normal range with ejection fraction is 71%. EEG normal. At discharge patient will continue with Plavix 75 mg daily. Aspirin 81 mg daily will be added. Also at discharge Bystolic has been discontinued due to bradycardia. Metformin has been discontinued due to well controlled diabetes. Recommendation is to monitor her blood pressure, heart rate, and blood sugars closely. Further adjustment can be done by her PCP. Recommendation is a follow up with cardiology and neurology as an outpatient to further monitor and address. 3. Patient with diabetes. Hemoglobin A1c 5.9. Patient has had recent hypoglycemia episodes. Recommendation is to discontinue metformin. She is to monitor blood sugars daily. Recommendation is to maintain blood sugars less 140 fasting less than 200 after meals. If blood sugars remain above 200 consistently she may need to restart metformin but at a lower dose. Further adjustment can be done by her PCP. 4. Patient with history of hypertension. Medications have been adjusted due to bradycardia. At discharge Bystolic has been discontinued. She will continue with valsartan 320 mg 1 pill once daily. Recommendation is to maintain blood pressures less 150/80. Further adjustment can be done by her PCP. 5. Patient has hyperlipidemia. LDL elevated at 85. Recommendation is for LDL to be less than 70. At discharge Lipitor will be increased to 40 mg daily. Recommendation is to recheck lipid panel in 4 weeks to monitor progress. 6. Patient found to have 1.7 cm left thyroid nodule. This has been addressed by Endocrinology in the past. Recommendation is for the patient to follow up with Endocrinology or ENT to further evaluate. Patient may require biopsy. 7. Patient had bradycardia likely related to medication. At discharge Bystolic has been discontinued. If bradycardia persists she will need a follow up with cardiology to further evaluate. Diet: ADA Activity: Fall precautions Time spent managing pt's care (in minutes): 55
[2018-03-17] MEDS: HYDRALAZINE HCL 25 MG TABLET PO SCH (20:46)
[2018-03-17] MEDS: ATORVASTATIN 80 MG TAB PO SCH (20:46)
[2018-03-18 00:25] VITALS: O2SAT 97
[2018-03-18] MEDS: NA CHLORIDE 0.9% 1,000 ML IV SCH (05:23)
[2018-03-18 05:57] LABS: BUN Blood Urea Nitrogen 10 mg/dL (6-20); Bicarbonate 26 mEq/L (21-31); Glucose Level 113 mg/dL (65-120); Potassium 3.5 mEq/L (3.6-5.0); Sodium Level 139 mEq/L (135-145)
[2018-03-18] MEDS ORDERED: POTASSIUM 25 MEQ EFFERV TAB PO ONE (07:00)
[2018-03-18] MEDS: INSULIN -REGULAR HUMAN 50 UNIT/0.5 ML ML SQ SCH (07:30)
[2018-03-18] MEDS: HYDRALAZINE HCL 25 MG TABLET PO SCH (08:13)
[2018-03-18] MEDS: ENOXAPARIN 40 MG/0.4 ML SQ SCH (08:13)
[2018-03-18] MEDS: VALSARTAN 160 MG TAB PO SCH (08:13)
[2018-03-18] MEDS: ASPIRIN EC 81 MG TAB PO SCH (08:13)
[2018-03-18] MEDS: CLOPIDOGREL 75 MG TABLET PO SCH (08:13)
[2018-03-18 08:16] VITALS: BP 138/75
[2018-03-18 08:17] VITALS: TEMP 97.8
--- NOTE | 2018-03-18 15:56 | PN ---
Date of Progress Note: 03/18/2018 Subjective: The patient seen and examined. Chart reviewed and case discussed with RN. The patient was discharged yesterday; however, had some elevated blood pressure and discharge was held. The chang ent is feeling better. No further episodes of syncope. Blood pressure has significantly improved. Review of Systems: Negative except as above. Medications: Reviewed. Physical Examination: Vital Signs: Temperature 97.8, heart rate 52, blood pressure 138/75, respirations 16, O2 96% on room air. General: Awake, alert, oriented x3. No acute distress. Elderly female. CV: S1, S2. No murmurs. Regular rate and rhythm. Peripheral pulses present. Respiratory: Moving air well bilaterally. No wheezing. Gastrointestinal: Abdomen is soft, nontender, and nondistended. Positive bowel sounds. Extremities: No clubbing, cyanosis, edema. Neurologic: Nonfocal. Laboratory Data: Sodium 139, potassium 3.5, chloride 111, CO2 26, BUN 10, creatinine 0.64, glucose 1 13, calcium 9.8. Assessment And Plan: 1.Transient ischemic attack. The patient on aspirin and Plavix. 2.Hyperlipidemia. We will continue with statin. 3.Thyroid nodule. We will continue to follow up with ENT. 4.Diabetes mellitus type 2 without long-term use of insulin with hypoglycemia. Metformin has been h eld. Please see details in discharge summary. 5.Essential hypertension, stable. 6.History of transient ischemic attack. 7.Syncopal episode, resolved. 8.Bradycardia. Hold beta-diony. Plan: Discharge home. /MIGDALIA Voice ID: [id number] Report ID: [id number]
--- NOTE | 2018-03-18 18:13 | PN ---
Date of Progress Note: 03/17/2018 Reason: TIA. Interval History: The patient is stable. No recurrent events. EEG was normal. Echocardiogram norm al. Brain MRI, no stroke. Additional history with the patient revealed she has been told to stop th e aspirin and Plavix prior to the colonoscopy. I think that is likely what incited the recurrent adelina nt. We have recommended that she not stop that agent unless there are serious medical necessities fo r at least next 90 days. Physical Examination: General: On exam, she is awake, alert, oriented. HEENT: Pupils reactive. Ocular motion full. [place] full. Facial strength and sensation normal. T ongue protrudes evenly. Soft palate elevates symmetrically bilaterally. Extremities: Strength full. Sensation intact. Reflexes 1/4. Toes are downgoing. Gait is normal. Impression: Transient ischemic attack. Plan: The patient is stable to be discharged. Continue dual anti-platelet therapy on discharge, int ensive statin, and antihypertensive. She can follow up with me in 3 weeks. Thank you for the consult. RASHAD Voice ID: [id number] Report ID: [id number]
== END 2018-03-18 10:46 | disposition home or self-care (01) ==
LOC: ER 13:35 → ERHOLD 15:14 → 4TH 16:57
PROVIDERS: ADMIT Internal Medicine; ATTEND Internal Medicine
DX: G45.9 Transient cerebral ischemic attack, unspecified (principal); E78.5 Hyperlipidemia, unspecified; E04.1 Nontoxic single thyroid nodule; E11.649 Type 2 diabetes mellitus with hypoglycemia without coma; I10 Essential (primary) hypertension; R00.1 Bradycardia, unspecified; R55 Syncope and collapse; Z86.73 Personal history of transient ischemic attack (TIA), and cerebral infarction without residual deficits
CPT/HCPCS: 36415 ×2; 70450; 70544; 70549; 70553; 71045; 80048 ×3; 80061; 82962 ×9; 83036; 83735; 84439; 84443; 85025 ×2; 85610; 87077; 87086; 87088; 87186; 93005 ×2; 93306; 93880; 95819; 96374; 97163; 99285; A9577; G0378 ×2; J1650 ×3; J7030 ×2; 81003; 81015